=== PATIENT | female | born 1985 | race Caucasian/White ===

== ENCOUNTER 2017-07-22 18:35 | Emergency (ER) | payer BC ==
[2017-07-22] MEDS ORDERED: HYDROcodone/Acetaminophen 5/325 mg Tablet ONE (19:28)
--- NOTE | 2017-07-22 19:51 | RAD ---
THREE VIEWS LEFT ANKLE: Comparison: Left ankle pain after twisting on the balance beam at a trampoline park just prior to arr ival. FINDINGS: Three views left ankle shows moderate lateral soft tissue swelling. There appears to be a fracture of the tip of the lateral malleolus. This appears corticated and remote and was seen on the prior exami nation. No acute fracture is seen. IMPRESSION: Remote fracture of the lateral malleolus without acute osseous abnormality. POS: [facility]
--- NOTE | 2017-07-22 20:09 | RAD ---
TWO VIEWS LEFT TIBIA AND FIBULA: Comparison: None. History: Twisting ankle at a trampoline park just prior to arrival with left leg pain. FINDINGS: Two views of the left tibia and fibula shows no evidence of acute fracture or dislocation. There is a remote occipital fragment adjacent to the tip of the lateral malleolus. No focal soft tissue swellin g is seen. IMPRESSION: No evidence of acute osseous abnormality. POS: [facility]
== END 2017-07-22 20:29 | disposition home or self-care (01) ==
LOC: SCSER 18:35
DX: S93.402A Sprain of unspecified ligament of left ankle, initial encounter (principal); G43.909 Migraine, unspecified, not intractable, without status migrainosus; X50.1XXA Overexertion from prolonged static or awkward postures, initial encounter

== ENCOUNTER 2018-12-09 13:26 | Outpatient (CLI) | payer BC ==
[~2018-12-09 13:26] MED LIST: Gadobenate Dimeglumine 529 MG/1 ML (20ML VIAL) ONE
--- NOTE | 2018-12-09 14:35 | RAD ---
EXAM: XR Lumbar Spine Min 4 View PROVIDED CLINICAL HISTORY: Low back pain and leg pain. COMPARISON: None FINDINGS: There are 5 nonrib-bearing lumbar-type vertebral bodies. The vertebral body heights and intervertebra l disc spaces are within normal limits. No abnormal translational motion is seen between the flexion and extension views. IMPRESSION: Normal radiographs lumbar spine.
--- NOTE | 2018-12-09 15:01 | MRI ---
MRI LUMBAR SPINE WITH AND WITHOUT CONTRAST: DATE: 12/09/2018. HISTORY: A 33-year-old female with M54.5; low back pain, M79.606, leg pain; R20.2, paresthesia of foot. COMPARISON: 07/19/2016. TECHNIQUE: Multiple sequences obtained in axial and sagittal planes, pre and post IV injection of gadolinium-bas ed contrast agent: 12 mL MultiHance. FINDINGS: Conus medullaris terminates at L2. The syrinx tapers off and terminates at approximately T12-L1. Th ere is no abnormal intramedullary, extramedullary -intradural, extradural, intraosseous, or periverte bral abnormal enhancement or abnormal signal. Bone marrow signal and disk signal are normal. Disk s paces and vertebral body heights are maintained. Alignment is normal. No central stenosis, neural f oraminal stenosis, or nerve root impingement, at any level. No high-grade facet DJD. The cauda equi na is arranged in a symmetrical, normal distribution throughout the thecal sac. There has been no si gnificant interval change since 07/19/2016. IMPRESSION: 1. Syringohydromyelia. 2. Otherwise, normal lumbar spine. 3. No interval change since 07/19/2016. ARTUR Villagomez POS: [facility]
== END 2018-12-09 13:27 | disposition home or self-care (01) ==
LOC: TBSIIMAG 13:26
PROVIDERS: ATTEND Surgery
DX: M54.5 Low back pain (principal); M79.606 Pain in leg, unspecified; R20.2 Paresthesia of skin; G95.0 Syringomyelia and syringobulbia
CPT/HCPCS: 72110; 72158; A9577

== ENCOUNTER 2019-01-30 07:41 | Outpatient (CLI) | payer BC ==
--- NOTE | 2019-01-30 11:12 | MRI ---
Exam: Thoracic spine MRI with and without contrast COMPARISON: 07/19/2016 HISTORY: Syringohydromyelia. Pain in both shoulders, arms and numbness in bilateral hands. Worsening symptoms. TECHNIQUE: Thoracic spine MRI is performed with and without intravenous gadolinium administration. Mu lti sequential, multiplanar imaging was performed. FINDINGS: Appropriate T1 marrow signal intensity of the thoracic vertebra. Vertebral body height is maintained. No fracture. No STIR hyperintensity to suggest vertebral body edema or ligamentous injury. Postcontrast images do not demonstrate any abnormal enhancement with regards to the vertebral bodies. Visualized mediastinal structures, lung parenchyma and solid organs of appropriate signal intensity. Conus medullaris terminates at the mid L1 level. Redemonstration of a central T2 hyperintense focus o ccupying nearly the entirety of the thoracic cord. This T2 hyperintense focus is largest at the T8 level, which is similar to the previous examination. Central T2 hyperintense component measures 0.3 x 0.4 cm, at the T8 level. There is no cord expansion. Overall, there is a stable appearance of the cord. No abnormal enhancement. The neural foramina are patent throughout the thoracic spine. At T5-T6, there is a left paracentral disc protrusion with deformity of the left aspect of the cord, similar to the previous exam IMPRESSION: 1. Single hydromyelia occupying nearly the entirety of the thoracic cord. No significant change when compared to the previous examination. Note, the cervical hydromyelia is also appreciated in the cervical cord, which is not evaluated on the current exam. 2. Stable degenerative change at T5-T6. Transcribed Date/Time: 01/30/2019 11:43 AM
--- NOTE | 2019-01-30 13:26 | MRI ---
CERVICAL SPINE MRI WITH AND WITHOUT CONTRAST: HISTORY: Syringohydromyelia. Cervical pain with bilateral shoulder, arm and upper extremity numbness. COMPARISON: 07/19/2016 FINDINGS: Appropriate T1 marrow signal intensity of the cervical vertebra. Cervical spine vertebral body height is maintained. No fracture. No significant STIR hyperintensity to suggest vertebral body edema or ligamentous injury. Postcontrast images do not demonstrate any abnormal enhancement with regards to t he cervical vertebra. Visualized brain parenchyma, cervicomedullary junction and the upper cervical cord have a normal size and signal intensity. Redemonstration of a central T2 hyperintensity that starts at the C4-C5 level and involves the remainder of the cervical cord. The T2 hyperintense focus is largest at the C7 level, measuring 0.6 x 0.6 cm. Compared to the previous examination, there is no significant change. Previously, this T2 hyperintense area measured 0.5 x 0.6 cm. Postcontrast images do not demon strate any associated enhancement. Stable mild degenerative change at C5-C6. Throughout the cervical spine, no evidence of significant c entral canal stenosis or significant neural foraminal narrowing IMPRESSION: 1. No significant central canal stenosis throughout the cervical spine. 2. Redemonstration of a syringohydromyelia, unchanged. Transcribed Date/Time: 01/30/2019 1:47 PM
== END 2019-01-30 07:42 | disposition home or self-care (01) ==
LOC: BICMRI 07:41
PROVIDERS: ATTEND Surgery
DX: G95.0 Syringomyelia and syringobulbia (principal); M54.5 Low back pain; M79.603 Pain in arm, unspecified; M79.606 Pain in leg, unspecified; M47.814 Spondylosis without myelopathy or radiculopathy, thoracic region; Q06.4 Hydromyelia
CPT/HCPCS: 72156; 72157

== ENCOUNTER 2020-04-10 13:53 | Emergency (ER) | payer OTHER ==
[2020-04-10 14:31] LABS: Hemoglobin 16.1 g/dL (12.0-16.0); Mean Corpuscular HGB CONC 33.1 g/dL (32.0-36.0); Mean Corpuscular Hemoglobin 30.1 pg (27.0-31.0); Mean Corpuscular Volume 90.9 fL (78.0-98.0); Mean Platelet Volume 7.2 fL (7.4-10.4); Platelet Count 259 thou/uL (130-400); Red Blood Cell (RBC) Count 5.36 mill/uL (4.20-5.40); White Blood Cell (WBC) Count 3.5 thou/uL (4.8-10.8)
[2020-04-10] MEDS ORDERED: Acetaminophen 500 MG TAB ONE (14:35)
[2020-04-10 14:49] LABS: ALT (SGPT) 17 U/L (8-55); AST (SGOT) 18 U/L (5-34); Albumin 4.4 g/dL (3.5-5.0); Alkaline Phosphatase 54 U/L (40-110); Anion Gap 11 mmol/L (10-20); BUN (Urea Nitrogen) 7 mg/dL (7.0-18.7); Bilirubin, Total 0.5 mg/dL (0.2-1.2); Calc. Creatinine Clearance 0 mL/min (70-130); Carbon Dioxide 29 mmol/L (22-29); Chloride 105 mmol/L (98-107); Estimated GFR-MDRD 84; Globulin 2.9 g/dL (2.4-3.5); Glucose 91 mg/dL (70-105); Potassium 3.6 mmol/L (3.5-5.1); Protein, Total 7.3 g/dL (6.0-8.3); Sodium 141 mmol/L (136-145)
[2020-04-10 14:57] LABS: Band 2 % (5-11); Eosinophils 2 % (0-10); Lymphocytes 43 % (21-51); MDiff Complete? YES; Monocytes 10 % (0-10); Neutrophil 29 % (42-75); Platelet Morphology Comment Appears Adequate; Polychromasia SLIGHT = 2-3 cells (100X) (0-2/hpf); Reactive Lymphocytes 14 % (0-10)
--- NOTE | 2020-04-10 15:02 | RAD ---
EXAM: CHEST ONE VIEW HISTORY: Fever, weakness, dizziness. Low white blood cell count. COMPARISON: 10/04/2012. FINDINGS: Right-sided Mediport catheter has been removed. Cardiac silhouette and pulmonary vasculature are with in normal limits. The lungs are clear. The osseous structures are intact. IMPRESSION: No acute cardiopulmonary process.
[2020-04-10 15:14] LABS: Bilirubin Negative (Negative); Blood, Urine Negative (Negative); Clarity Turbid (Clear); Glucose, Urine (Dipstick) Normal (Negative); Ketone, Urine Negative (Negative); Leukocyte Negative Leu/uL (Negative); Nitrite Negative (Negative); Protein, Urine (Dipstick) 10 mg/dL (Neg-Trace); Specific Gravity, Urine 1.014 (1.002-1.036); pH, Urine 6.5 (5.0-9.0)
[2020-04-10 15:15] LABS: Pregnancy Test - Urine (BHCG) Negative (Negative)
[2020-04-10 15:16] LABS: Pregu Control Background? CLEAR/WHITE (CLR/WHITE); Pregu Control Bar Appear? YES (CONTROL BAR); Specific Gravity 1.014 (1.002-1.036)
[2020-04-11 11:38] LABS: SARS-CoV-2 MS2 Positive; SARS-CoV-2 N Gene Positive; SARS-CoV-2 S Gene Positive; SARS-CoV-2 by NAA DETECTED (NotDetected); SARS-CoV-2 orf1ab Positive
== END 2020-04-10 16:27 | disposition home or self-care (01) ==
LOC: ERS 13:53
DX: R53.81 Other malaise (principal); R53.83 Other fatigue; D72.819 Decreased white blood cell count, unspecified; F90.9 Attention-deficit hyperactivity disorder, unspecified type; Z79.899 Other long term (current) drug therapy; G20 Parkinson's disease; F32.9 Major depressive disorder, single episode, unspecified
CPT/HCPCS: 36415; 71045; 80053; 81003; 81025; 83605; 84443; 85025; 87635; 87804; 93005; U0003

== ENCOUNTER 2021-08-17 15:49 | Observation (INO) | payer MEDICARE, OTHER ==
[2021-08-17 16:56] LABS: #Lymphocytes 3.1 thou/uL (1.20-3.40); #Monocytes 0.7 thou/uL (0.11-0.59); #Neutrophils 6.3 thou/uL (1.40-6.50); %Basophils 0.5 % (0.0-1.0); %Eosinophils 0.1 % (0.0-10.0); %Lymphocytes 30.8 % (21.0-51.0); %Monocytes 6.4 % (0.0-10.0); %Neutrophils 62.1 % (42.0-75.0); Hemoglobin 14.9 g/dL (12.0-16.0); Mean Corpuscular HGB CONC 31.9 g/dL (32.0-36.0); Mean Corpuscular Hemoglobin 30.5 pg (27.0-31.0); Mean Corpuscular Volume 95.9 fL (78.0-98.0); Mean Platelet Volume 6.5 fL (7.4-10.4); Platelet Count 421 thou/uL (130-400); RBC Distribution Width 12.1 % (11.5-14.5); Red Blood Cell (RBC) Count 4.89 mill/uL (4.20-5.40); White Blood Cell (WBC) Count 10.1 thou/uL (4.8-10.8)
[2021-08-17 17:02] LABS: BHCG - Serum Negative (NEGATIVE); Pregs Control Background? CLEAR/WHITE (CLR/WHITE); Pregs Control Bar Appear? YES (CONTROL BAR)
[2021-08-17 17:10] LABS: ALT (SGPT) 12 U/L (8-55); AST (SGOT) 12 U/L (5-34); Albumin 4.6 g/dL (3.5-5.0); Alkaline Phosphatase 45 U/L (40-110); Anion Gap 16 mmol/L (10-20); BUN (Urea Nitrogen) 13 mg/dL (7.0-18.7); Bilirubin, Total 0.4 mg/dL (0.2-1.2); Calc. Creatinine Clearance 0 mL/min (70-130); Calcium 9.7 mg/dL (7.8-10.44); Carbon Dioxide 27 mmol/L (22-29); Chloride 102 mmol/L (98-107); Globulin 3.1 g/dL (2.4-3.5); Glucose 85 mg/dL (70-105); Lipase 73 U/L (8-78); Potassium 3.9 mmol/L (3.5-5.1); Protein, Total 7.7 g/dL (6.0-8.3); Sodium 141 mmol/L (136-145)
[2021-08-17 19:04] LABS: Clarity Clear (Clear); Specific Gravity, Urine 1.024 (1.002-1.036)
[2021-08-17 19:05] LABS: Bilirubin Negative (Negative); Blood, Urine Negative (Negative); Glucose, Urine (Dipstick) Normal (Negative); Ketone, Urine Negative (Negative); Leukocyte Negative Leu/uL (Negative); Nitrite Negative (Negative); Protein, Urine (Dipstick) Negative (Neg-Trace); Urobilinogen Normal mg/dL (Less than 2)
[2021-08-17 22:22] LABS: Troponin I Less than 0.010 ng/mL (< 0.028)
[2021-08-17] MEDS ORDERED: Ondansetron ODT 4 MG TAB SL PRN (23:00)
[2021-08-17] MEDS ORDERED: Acetaminophen 325 MG TAB PO PRN (23:00)
[2021-08-17] MEDS ORDERED: Ondansetron PF 4 MG/2 ML Vial IVP PRN (23:00)
[2021-08-17] MEDS ORDERED: Acetaminophen 650 MG Suppository PR PRN (23:11)
[2021-08-17 23:57] VITALS: BMI 26.3
[2021-08-18] MEDS: traMADol HCl 50 MG TAB PO PRN ×2 (00:11→13:44)
[2021-08-18 01:37] LABS: Troponin I Less than 0.010 ng/mL (< 0.028)
[2021-08-18 06:19] LABS: Hemoglobin 14.1 g/dL (12.0-16.0); Mean Corpuscular HGB CONC 32.6 g/dL (32.0-36.0); Mean Corpuscular Hemoglobin 31.3 pg (27.0-31.0); Mean Corpuscular Volume 95.9 fL (78.0-98.0); Platelet Count 338 thou/uL (130-400); RBC Distribution Width 12.3 % (11.5-14.5); Red Blood Cell (RBC) Count 4.53 mill/uL (4.20-5.40); White Blood Cell (WBC) Count 8.1 thou/uL (4.8-10.8)
[2021-08-18 06:22] LABS: Anion Gap 13 mmol/L (10-20); BUN (Urea Nitrogen) 15 mg/dL (7.0-18.7); Calc. Creatinine Clearance 125 mL/min (70-130); Calcium 8.9 mg/dL (7.8-10.44); Carbon Dioxide 24 mmol/L (22-29); Chloride 106 mmol/L (98-107); Glucose 70 mg/dL (70-105); Potassium 3.9 mmol/L (3.5-5.1); Sodium 139 mmol/L (136-145)
[2021-08-18 06:37] LABS: Lymphocytes 56 % (21-51); MDiff Complete? YES; Monocytes 9 % (0-10); Neutrophil 35 % (42-75)
[2021-08-18] MEDS ORDERED: Enoxaparin Sodium 40 MG/0.4 ML SYRINGE SC SCH (09:00)
[2021-08-18] MEDS ORDERED: Magnevist 469MG/ML 20 ML VIAL ONE (11:00)
[2021-08-18] MEDS ORDERED: Prochlorperazine Edisylate 10 MG in Sodium Chloride 0.9% 50 ML IVPB PRN (12:04)
[2021-08-18] MEDS ORDERED: diphenhydrAMINE 50 MG/ML VIAL IVP SCH (12:15)
[2021-08-18] MEDS ORDERED: Aspirin 325 MG TAB PO SCH (12:15)
[2021-08-18] MEDS ORDERED: Topiramate 25 MG TAB PO SCH ×2 (12:15→21:00)
[2021-08-18] MEDS: Ketorolac Tromethamine 30 MG/ML VIAL IVP SCH ×2 (13:45→18:11)
[2021-08-18 15:49] VITALS: BP 116/72; TEMP 97.7
== END 2021-08-18 18:30 | disposition home or self-care (01) ==
LOC: ERS 15:49 → NEURO 21:21
PROVIDERS: ADMIT Student in an Organized Health Care Education/Training Program; ATTEND Internal Medicine
DX: G43.909 Migraine, unspecified, not intractable, without status migrainosus (principal); G95.0 Syringomyelia and syringobulbia; H54.7 Unspecified visual loss; R07.89 Other chest pain; G62.9 Polyneuropathy, unspecified; G20 Parkinson's disease; R53.1 Weakness; Z85.71 Personal history of Hodgkin lymphoma; Z79.899 Other long term (current) drug therapy
CPT/HCPCS: 36415; 70450; 70553; 71045; 72141; 80048; 80053; 81003; 83690; 84484; 84703; 85025; 85379; 93005; 96372; 96374; 96375; A9579; G0378; J0780; J1650; J1885

== ENCOUNTER 2022-07-16 10:58 | Emergency (ER) | payer OTHER, MEDICARE ==
[2022-07-16 12:06] LABS: #Eosinphils 0.1 thou/uL (0.0-0.7); #Lymphocytes 1.9 thou/uL (1.20-3.40); #Monocytes 0.5 thou/uL (0.11-0.59); #Neutrophils 3.5 thou/uL (1.40-6.50); %Basophils 0.7 % (0.0-1.0); %Eosinophils 1.3 % (0.0-10.0); %Lymphocytes 32.2 % (21.0-51.0); %Monocytes 7.9 % (0.0-10.0); %Neutrophils 57.9 % (42.0-75.0); Hemoglobin 14.7 g/dL (12.0-16.0); Mean Corpuscular HGB CONC 32.5 g/dL (32.0-36.0); Mean Corpuscular Hemoglobin 29.4 pg (27.0-31.0); Mean Corpuscular Volume 90.4 fl (78.0-98.0); Platelet Count 373 10x3/uL (130-400); RBC Distribution Width 12.3 % (11.5-14.5); Red Blood Cell (RBC) Count 5.01 mill/uL (4.20-5.40)
[2022-07-16] MEDS ORDERED: Ketorolac Tromethamine 30 MG/ML VIAL ONE (12:07)
[2022-07-16 12:27] LABS: ALT (SGPT) 11 U/L (8-55); AST (SGOT) 15 U/L (5-34); Albumin 4.1 g/dL (3.5-5.0); Alkaline Phosphatase 50 U/L (40-110); Anion Gap 14 mmol/L (10-20); BUN (Urea Nitrogen) 7 mg/dL (7.0-18.7); Bilirubin, Total 0.6 mg/dL (0.2-1.2); Calc. Creatinine Clearance 0 mL/min (70-130); Calcium 9.2 mg/dL (7.8-10.44); Carbon Dioxide 24 mmol/L (22-29); Chloride 104 mmol/L (98-107); Estimated GFR 106; Glucose 88 mg/dL (70-105); Potassium 3.7 mmol/L (3.5-5.1); Protein, Total 7.1 g/dL (6.0-8.3); Sodium 138 mmol/L (136-145)
== END 2022-07-16 13:51 | disposition home or self-care (01) ==
LOC: ERS 10:58
DX: R07.89 Other chest pain (principal)
CPT/HCPCS: 36415; 71045; 80053; 84484; 85025; 85379; 93005; 96372; J1885

== ENCOUNTER 2022-10-12 11:07 | Outpatient (CLI) | payer OTHER | END 2022-10-12 11:08 | disposition home or self-care (01) | LOC: ULT 11:07 | PROVIDERS: ATTEND Family Medicine | DX: I73.9 Peripheral vascular disease, unspecified (principal) | CPT/HCPCS: 93923 ==

== ENCOUNTER 2022-11-22 11:55 | Emergency (ER) | payer OTHER ==
[2022-11-22 14:22] LABS: #Eosinphils 0.1 thou/uL (0.0-0.7); #Monocytes 0.4 thou/uL (0.11-0.59); #Neutrophils 3.8 thou/uL (1.40-6.50); %Basophils 0.7 % (0.0-1.0); %Lymphocytes 26.6 % (21.0-51.0); %Monocytes 7.2 % (0.0-10.0); %Neutrophils 63.3 % (42.0-75.0); Hemoglobin 12.1 g/dL (12.0-16.0); Mean Corpuscular HGB CONC 30.9 g/dL (32.0-36.0); Mean Corpuscular Volume 90.5 fl (78.0-98.0); Mean Platelet Volume 10.2 fL (7.4-10.4); Platelet Count 332 10x3/uL (130-400); RBC Distribution Width 13.2 % (11.5-14.5); Red Blood Cell (RBC) Count 4.32 mill/uL (4.20-5.40); White Blood Cell (WBC) Count 5.9 10x3/uL (4.8-10.8)
[2022-11-22 14:52] LABS: ALT (SGPT) 26 U/L (8-55); AST (SGOT) 23 U/L (5-34); Albumin 4.3 g/dL (3.5-5.0); Alkaline Phosphatase 53 U/L (40-110); Anion Gap 14 mmol/L (10-20); BUN (Urea Nitrogen) 9 mg/dL (7.0-18.7); Bilirubin, Total 0.2 mg/dL (0.2-1.2); Calc. Creatinine Clearance 0 mL/min (70-130); Calcium 9.3 mg/dL (7.8-10.44); Carbon Dioxide 23 mmol/L (22-29); Chloride 106 mmol/L (98-107); Estimated GFR 98; Globulin 2.8 g/dL (2.4-3.5); Glucose 91 mg/dL (70-105); Potassium 3.6 mmol/L (3.5-5.1); Protein, Total 7.1 g/dL (6.0-8.3); Sodium 139 mmol/L (136-145)
[2022-11-22 15:26] LABS: INR-International Normal Ratio 1.1; PTT 32.5 sec (22.9-36.1); Prothrombin Time 15.1 sec (12.0-14.7)
== END 2022-11-22 16:32 | disposition home or self-care (01) ==
LOC: ERS 11:55
DX: R04.0 Epistaxis (principal)
CPT/HCPCS: 36415; 80053; 85025; 85610; 85730; 93005

== ENCOUNTER 2023-02-25 15:35 | Emergency (ER) | payer OTHER ==
[~2023-02-25 15:35] MED LIST changes: -Gadobenate Dimeglumine 529 MG/1 ML (20ML VIAL) ONE; +Iopamidol-370 76% 500 ML MDV (1 ML CHARGE) ONE
[2023-02-25 16:12] LABS: #Monocytes 0.5 thou/uL (0.11-0.59); #Neutrophils 6.1 thou/uL (1.40-6.50); %Basophils 0.3 % (0.0-1.0); %Eosinophils 0.3 % (0.0-10.0); %Lymphocytes 23.3 % (21.0-51.0); %Monocytes 5.6 % (0.0-10.0); %Neutrophils 70.3 % (42.0-75.0); Hematocrit 38.3 % (36.0-47.0); Hemoglobin 11.6 g/dL (12.0-16.0); Mean Corpuscular HGB CONC 30.3 g/dL (32.0-36.0); Mean Corpuscular Volume 79.3 fl (78.0-98.0); Mean Platelet Volume 9.8 fL (7.4-10.4); Platelet Count 394 10x3/uL (130-400); RBC Distribution Width 15.4 % (11.5-14.5); Red Blood Cell (RBC) Count 4.83 mill/uL (4.20-5.40); White Blood Cell (WBC) Count 8.6 10x3/uL (4.8-10.8)
[2023-02-25 16:45] LABS: Troponin I Less than 0.010 ng/mL (< 0.028)
[2023-02-25 16:50] LABS: Albumin 4.5 g/dL (3.5-5.0)
[2023-02-25 16:51] LABS: Chloride 106 mmol/L (98-107); Sodium 137 mmol/L (136-145)
[2023-02-25 16:52] LABS: Calcium 9.2 mg/dL (7.8-10.44); Glucose 87 mg/dL (70-105)
[2023-02-25 16:53] LABS: Globulin 3.6 g/dL (2.4-3.5); Protein, Total 8.1 g/dL (6.0-8.3)
[2023-02-25 16:54] LABS: Anion Gap 14 mmol/L (10-20); Bilirubin, Total 0.4 mg/dL (0.2-1.2); Carbon Dioxide 22 mmol/L (22-29)
[2023-02-25 16:55] LABS: Alkaline Phosphatase 46 U/L (40-110)
[2023-02-25 16:56] LABS: Calc. Creatinine Clearance 0 mL/min (70-130); Estimated GFR 91
[2023-02-25 16:57] LABS: BUN (Urea Nitrogen) 9 mg/dL (7.0-18.7)
[2023-02-25 16:58] LABS: ALT (SGPT) 18 U/L (8-55); AST (SGOT) 48 U/L (5-34); Lipase 61 U/L (8-78)
[2023-02-25 17:33] LABS: Bacteria/HPF None Seen HPF (None Seen); Bilirubin Negative (Negative); Blood, Urine Negative (Negative); CAUTI Indications for Culture Alt mental st,lethar; Clarity Clear (Clear); Glucose, Urine (Dipstick) Greater than 1000 mg/dL (Negative); Ketone, Urine Negative (Negative); Leukocyte Negative Leu/uL (Negative); Nitrite Negative (Negative); Protein, Urine (Dipstick) Negative (Neg-Trace); RBC/HPF 0-3 HPF (0-3); Specific Gravity, Urine 1.009 (1.002-1.036); Squamous Epithelial 0-3 HPF (0-3); Urobilinogen Normal mg/dL (Less than 2); WBC/HPF 0-3 HPF (0-3); pH, Urine 6.5 (5.0-9.0)
[2023-02-25 17:34] LABS: Urine Culture Reflex No No
[2023-02-25] MEDS ORDERED: Morphine 4 MG/ML VIAL ONE (18:05)
[2023-02-25] MEDS ORDERED: diphenhydrAMINE 50 MG/ML VIAL ONE (18:17)
[2023-02-25] MEDS ORDERED: Ondansetron PF 4 MG/2 ML Vial ONE (18:17)
[2023-02-25] MEDS ORDERED: LORazepam 2 MG/ML SYR.(CARPUJECT) ONE ×2 (18:28→18:31)
[2023-02-25 21:12] LABS: Troponin I 0.012 ng/mL (< 0.028)
[2023-02-25] MEDS ORDERED: Acetaminophen 500 MG TAB ONE (21:43)
== END 2023-02-25 21:41 | disposition home or self-care (01) ==
LOC: ERS 15:35
DX: R07.9 Chest pain, unspecified (principal); R11.0 Nausea
CPT/HCPCS: 71045; 71275; 80053; 81001; 83690; 84484 ×2; 85025; 93005; 94760; 96374; 96375; 99285; J2060; 36415; J1200; J2270; J2405; Q9967

== ENCOUNTER 2023-02-26 05:30 | Inpatient (IN) | payer OTHER ==
[2023-02-26] MEDS ORDERED: Mag-Al 1200 mg/1200 mg/30 ML UDCUP ONE (05:55)
[2023-02-26 06:05] LABS: #Monocytes 0.8 thou/uL (0.11-0.59); #Neutrophils 4.4 thou/uL (1.40-6.50); %Basophils 0.5 % (0.0-1.0); %Eosinophils 0.2 % (0.0-10.0); %Lymphocytes 35.6 % (21.0-51.0); %Monocytes 9.7 % (0.0-10.0); %Neutrophils 53.8 % (42.0-75.0); Hematocrit 36.6 % (36.0-47.0); Hemoglobin 11.8 g/dL (12.0-16.0); Mean Corpuscular HGB CONC 32.2 g/dL (32.0-36.0); Mean Corpuscular Hemoglobin 24.3 pg (27.0-31.0); Mean Platelet Volume 9.9 fL (7.4-10.4); Platelet Count 404 10x3/uL (130-400); RBC Distribution Width 15.1 % (11.5-14.5); Red Blood Cell (RBC) Count 4.85 mill/uL (4.20-5.40); White Blood Cell (WBC) Count 8.2 10x3/uL (4.8-10.8)
[2023-02-26 06:32] LABS: ALT (SGPT) 16 U/L (8-55); AST (SGOT) 18 U/L (5-34); Albumin 4.7 g/dL (3.5-5.0); Alkaline Phosphatase 49 U/L (40-110); Anion Gap 16 mmol/L (10-20); BUN (Urea Nitrogen) 11 mg/dL (7.0-18.7); Bilirubin, Total 0.6 mg/dL (0.2-1.2); Calc. Creatinine Clearance 0 mL/min (70-130); Calcium 10.1 mg/dL (7.8-10.44); Carbon Dioxide 21 mmol/L (22-29); Chloride 104 mmol/L (98-107); Estimated GFR 84; Globulin 2.7 g/dL (2.4-3.5); Glucose 72 mg/dL (70-105); Lipase 47 U/L (8-78); Potassium 3.5 mmol/L (3.5-5.1); Protein, Total 7.4 g/dL (6.0-8.3); Sodium 137 mmol/L (136-145)
[2023-02-26 06:36] LABS: Troponin I Less than 0.010 ng/mL (< 0.028)
[2023-02-26 06:36] LABS: Bacteria/HPF None Seen HPF (None Seen); Bilirubin Negative (Negative); Blood, Urine 3+ (Negative); CAUTI Indications for Culture Alt mental st,lethar; Clarity Turbid (Clear); Glucose, Urine (Dipstick) Greater than 1000 mg/dL (Negative); Ketone, Urine 20 mg/dL (Negative); Leukocyte 25 Leu/uL (Negative); Nitrite Negative (Negative); Protein, Urine (Dipstick) 50 mg/dL (Neg-Trace); RBC/HPF Greater than 50 HPF (0-3); Squamous Epithelial 0-3 HPF (0-3); Urobilinogen Normal mg/dL (Less than 2); pH, Urine 5.5 (5.0-9.0)
[2023-02-26] MEDS ORDERED: Morphine 2 MG/ML VIAL ONE (06:40)
[2023-02-26] MEDS ORDERED: Ondansetron PF 4 MG/2 ML Vial ONE (06:40)
[2023-02-26 06:43] LABS: Mean Corpuscular Volume 75.5 fl (78.0-98.0)
[2023-02-26 07:04] LABS: Urine Culture Reflex No No
[2023-02-26] MEDS ORDERED: Calcium Carbonate 500 MG ChewTAB PO PRN (08:10)
[2023-02-26] MEDS ORDERED: Senokot S 8.6-50 MG TAB PO PRN (08:10)
[2023-02-26 09:26] LABS: Troponin I Less than 0.010 ng/mL (< 0.028)
[2023-02-26] MEDS: Rosuvastatin 20 MG TAB PO SCH (09:56)
[2023-02-26] MEDS: Acetaminophen 325 MG TAB PO PRN ×2 (09:56→15:13)
[2023-02-26] MEDS: PARoxetine 20 MG TAB PO SCH (09:56)
[2023-02-26] MEDS: Aspirin Chewable 81 MG TAB PO SCH (09:56)
[2023-02-26] MEDS: Clopidogrel Bisulfate 75 MG TAB PO SCH (09:56)
[2023-02-26] MEDS: Furosemide 20 MG TAB PO SCH (09:56)
[2023-02-26 10:58] VITALS: BMI 29.8
[2023-02-26] MEDS ORDERED: Nitroglycerin 2% Ointment 1 INCH/1 GM Packet TOP SCH (14:00)
[2023-02-26] MEDS: Ondansetron PF 4 MG/2 ML Vial IVP PRN (15:12)
[2023-02-26] MEDS ORDERED: Morphine 4 MG/ML VIAL SLOW IVP SCH (16:45)
[2023-02-26] MEDS ORDERED: Morphine 2 MG/ML VIAL SLOW IVP PRN (18:00)
[2023-02-26] MEDS: Lisinopril 5 MG TAB PO SCH (23:06)
[2023-02-27] MEDS: Acetaminophen 325 MG TAB PO PRN ×2 (04:48→12:15)
[2023-02-27 06:01] LABS: #Eosinphils 0.1 thou/uL (0.0-0.7); #Monocytes 0.8 thou/uL (0.11-0.59); #Neutrophils 3.2 thou/uL (1.40-6.50); %Basophils 0.5 % (0.0-1.0); %Eosinophils 1.6 % (0.0-10.0); %Lymphocytes 35.1 % (21.0-51.0); %Monocytes 11.9 % (0.0-10.0); %Neutrophils 50.7 % (42.0-75.0); Hematocrit 34.3 % (36.0-47.0); Hemoglobin 10.3 g/dL (12.0-16.0); Mean Platelet Volume 9.6 fL (7.4-10.4); Platelet Count 325 10x3/uL (130-400); RBC Distribution Width 15.4 % (11.5-14.5); White Blood Cell (WBC) Count 6.3 10x3/uL (4.8-10.8)
[2023-02-27 06:07] LABS: Hemoglobin A1c 5.8 % (4.0-6.0)
[2023-02-27 06:10] LABS: Mean Corpuscular Volume 79.8 fl (78.0-98.0)
[2023-02-27 06:22] LABS: ALT (SGPT) 15 U/L (8-55); AST (SGOT) 18 U/L (5-34); Alkaline Phosphatase 41 U/L (40-110); Anion Gap 10 mmol/L (10-20); BUN (Urea Nitrogen) 10 mg/dL (7.0-18.7); Bilirubin, Total 0.4 mg/dL (0.2-1.2); Calc. Creatinine Clearance 115 mL/min (70-130); Calcium 8.9 mg/dL (7.8-10.44); Carbon Dioxide 26 mmol/L (22-29); Cardiac Risk 2.6 (Less than 4.5); Chloride 105 mmol/L (98-107); Cholesterol 120 mg/dl (< 200 Desired); Estimated GFR 92; Globulin 2.4 g/dL (2.4-3.5); Glucose 88 mg/dL (70-105); HDL Cholesterol 47 mg/dL (>60 Neg Risk); LDL Cholesterol, Calculated 60 mg/dL; Magnesium 2.2 mg/dL (1.6-2.6); Potassium 3.6 mmol/L (3.5-5.1); Protein, Total 6.4 g/dL (6.0-8.3); Sodium 137 mmol/L (136-145); Triglycerides 65 mg/dL (Less than 150)
[2023-02-27] MEDS: Furosemide 20 MG TAB PO SCH (08:56)
[2023-02-27] MEDS: Rosuvastatin 20 MG TAB PO SCH (08:56)
[2023-02-27] MEDS: Aspirin Chewable 81 MG TAB PO SCH (08:56)
[2023-02-27] MEDS: PARoxetine 20 MG TAB PO SCH (08:56)
[2023-02-27] MEDS: Clopidogrel Bisulfate 75 MG TAB PO SCH (08:56)
[2023-02-27] MEDS: Empagliflozin 10 MG TAB PO SCH (08:56)
[2023-02-27] MEDS: Ondansetron PF 4 MG/2 ML Vial IVP PRN (12:19)
[2023-02-27] MEDS: Lisinopril 5 MG TAB PO SCH (20:24)
[2023-02-28 04:28] LABS: #Eosinphils 0.1 thou/uL (0.0-0.7); #Monocytes 0.7 thou/uL (0.11-0.59); %Basophils 0.3 % (0.0-1.0); %Eosinophils 1.3 % (0.0-10.0); %Lymphocytes 38.4 % (21.0-51.0); %Monocytes 10.7 % (0.0-10.0); Hematocrit 35.1 % (36.0-47.0); Hemoglobin 10.5 g/dL (12.0-16.0); Mean Corpuscular HGB CONC 29.9 g/dL (32.0-36.0); Mean Corpuscular Hemoglobin 23.9 pg (27.0-31.0); Mean Platelet Volume 9.8 fL (7.4-10.4); Platelet Count 341 10x3/uL (130-400); RBC Distribution Width 15.3 % (11.5-14.5); Red Blood Cell (RBC) Count 4.39 mill/uL (4.20-5.40); White Blood Cell (WBC) Count 6.1 10x3/uL (4.8-10.8)
[2023-02-28 04:54] LABS: Anion Gap 10 mmol/L (10-20); BUN (Urea Nitrogen) 10 mg/dL (7.0-18.7); Calc. Creatinine Clearance 118 mL/min (70-130); Carbon Dioxide 27 mmol/L (22-29); Chloride 107 mmol/L (98-107); Estimated GFR 95; Glucose 81 mg/dL (70-105); Potassium 3.9 mmol/L (3.5-5.1); Sodium 140 mmol/L (136-145)
[2023-02-28] MEDS ORDERED: Midazolam HCl 2 mg/2 ml Vial ONE (09:34)
[2023-02-28] MEDS ORDERED: PROPOFOL 200 MG/20 ML VIAL ONE (09:52)
[2023-02-28] MEDS: Empagliflozin 10 MG TAB PO SCH (11:15)
[2023-02-28] MEDS: Furosemide 20 MG TAB PO SCH (11:15)
[2023-02-28] MEDS: PARoxetine 20 MG TAB PO SCH (11:15)
[2023-02-28] MEDS: Rosuvastatin 20 MG TAB PO SCH (11:16)
[2023-02-28] MEDS: Aspirin Chewable 81 MG TAB PO SCH (11:16)
[2023-02-28] MEDS: Clopidogrel Bisulfate 75 MG TAB PO SCH (11:17)
[2023-02-28] MEDS: Lisinopril 5 MG TAB PO SCH (19:54)
[2023-02-28] MEDS ORDERED: Melatonin 3 MG TAB PO PRN (20:04)
[2023-03-01 05:16] LABS: #Eosinphils 0.1 thou/uL (0.0-0.7); #Monocytes 0.6 thou/uL (0.11-0.59); #Neutrophils 4.1 thou/uL (1.40-6.50); %Basophils 0.6 % (0.0-1.0); %Eosinophils 1.7 % (0.0-10.0); %Lymphocytes 25.2 % (21.0-51.0); %Monocytes 8.8 % (0.0-10.0); %Neutrophils 63.5 % (42.0-75.0); Hematocrit 35.7 % (36.0-47.0); Mean Corpuscular HGB CONC 30.8 g/dL (32.0-36.0); Mean Corpuscular Hemoglobin 24.3 pg (27.0-31.0); Mean Corpuscular Volume 78.8 fl (78.0-98.0); Mean Platelet Volume 10.2 fL (7.4-10.4); Platelet Count 339 10x3/uL (130-400); RBC Distribution Width 15.7 % (11.5-14.5); Red Blood Cell (RBC) Count 4.53 mill/uL (4.20-5.40); White Blood Cell (WBC) Count 6.5 10x3/uL (4.8-10.8)
[2023-03-01 05:54] LABS: Anion Gap 11 mmol/L (10-20); BUN (Urea Nitrogen) 10 mg/dL (7.0-18.7); Calc. Creatinine Clearance 114 mL/min (70-130); Calcium 9.2 mg/dL (7.8-10.44); Carbon Dioxide 25 mmol/L (22-29); Chloride 106 mmol/L (98-107); Estimated GFR 91; Glucose 89 mg/dL (70-105); Potassium 3.6 mmol/L (3.5-5.1); Sodium 138 mmol/L (136-145)
[2023-03-01] MEDS: Empagliflozin 10 MG TAB PO SCH (08:07)
[2023-03-01] MEDS: Furosemide 20 MG TAB PO SCH (08:07)
[2023-03-01] MEDS: Rosuvastatin 20 MG TAB PO SCH (08:07)
[2023-03-01] MEDS: PARoxetine 20 MG TAB PO SCH (08:07)
[2023-03-01] MEDS: Aspirin Chewable 81 MG TAB PO SCH (08:07)
[2023-03-01] MEDS: Clopidogrel Bisulfate 75 MG TAB PO SCH (08:07)
[2023-03-01] MEDS ORDERED: Promethazine HCl 12.5 MG in Sodium Chloride 0.9% 50 ML IVPB PRN (12:44)
[2023-03-01 15:36] VITALS: BP 90/55; TEMP 98.8
== END 2023-03-01 16:50 | disposition home or self-care (01) | DRG 392 ==
LOC: SUATTDRO 05:30 → ERS 05:30 → 2NO 08:18 → OBSVTOIN 02-27 15:20
PROVIDERS: ADMIT Internal Medicine; ATTEND Emergency Medicine
PROC: 0DB68ZX Excision of Stomach, Via Natural or Artificial Opening Endoscopic, Diagnostic (ICD-10-PCS; principal; 2023-02-28)
PROC: 0D758ZZ Dilation of Esophagus, Via Natural or Artificial Opening Endoscopic (ICD-10-PCS; 2023-02-28)
DX: R13.12 Dysphagia, oropharyngeal phase (principal); R07.89 Other chest pain; G43.909 Migraine, unspecified, not intractable, without status migrainosus; G62.9 Polyneuropathy, unspecified; I25.10 Atherosclerotic heart disease of native coronary artery without angina pectoris; E78.00 Pure hypercholesterolemia, unspecified; I73.9 Peripheral vascular disease, unspecified; M19.90 Unspecified osteoarthritis, unspecified site; F90.9 Attention-deficit hyperactivity disorder, unspecified type; F32.A Depression, unspecified; K29.70 Gastritis, unspecified, without bleeding; R11.2 Nausea with vomiting, unspecified; Z79.82 Long term (current) use of aspirin; Z79.899 Other long term (current) drug therapy; Z95.5 Presence of coronary angioplasty implant and graft; I25.2 Old myocardial infarction; Z86.73 Personal history of transient ischemic attack (TIA), and cerebral infarction without residual deficits; Z90.710 Acquired absence of both cervix and uterus
CPT/HCPCS: 36415; 71045; 71275; 74230; 76705; 80048; 80053; 80061; 81001; 83036; 83690; 83735; 84484; 85025; 88305; 88342; 93005; 94760; 96372; 96374; 96375; 96376; G0378; J1200; J1650; J2060; J2250; J2270; J2272; J2405; J2550; J2704; Q9967

== ENCOUNTER 2023-03-05 21:02 | Inpatient (IN) | payer OTHER ==
[2023-03-05 22:14] LABS: #Monocytes 0.9 thou/uL (0.11-0.59); #Neutrophils 16.1 thou/uL (1.40-6.50); %Basophils 0.1 % (0.0-1.0); %Lymphocytes 5.6 % (21.0-51.0); %Neutrophils 88.9 % (42.0-75.0); Hematocrit 35.3 % (36.0-47.0); Hemoglobin 10.9 g/dL (12.0-16.0); Mean Corpuscular HGB CONC 30.9 g/dL (32.0-36.0); Mean Corpuscular Hemoglobin 24.4 pg (27.0-31.0); Mean Platelet Volume 10.2 fL (7.4-10.4); Platelet Count 368 10x3/uL (130-400); RBC Distribution Width 15.9 % (11.5-14.5); Red Blood Cell (RBC) Count 4.47 mill/uL (4.20-5.40); White Blood Cell (WBC) Count 18.1 10x3/uL (4.8-10.8)
[2023-03-05 22:36] LABS: ALT (SGPT) 14 U/L (8-55); AST (SGOT) 20 U/L (5-34); Albumin 4.2 g/dL (3.5-5.0); Alkaline Phosphatase 44 U/L (40-110); Anion Gap 16 mmol/L (10-20); BUN (Urea Nitrogen) 10 mg/dL (7.0-18.7); Bilirubin, Total 0.3 mg/dL (0.2-1.2); Calc. Creatinine Clearance 0 mL/min (70-130); Calcium 8.8 mg/dL (7.8-10.44); Carbon Dioxide 18 mmol/L (22-29); Chloride 105 mmol/L (98-107); Estimated GFR 90; Globulin 2.7 g/dL (2.4-3.5); Glucose 90 mg/dL (70-105); Potassium 3.8 mmol/L (3.5-5.1); Protein, Total 6.9 g/dL (6.0-8.3); Sodium 135 mmol/L (136-145)
[2023-03-05 22:41] LABS: Troponin I Less than 0.010 ng/mL (< 0.028)
[2023-03-05] MEDS ORDERED: Vancomycin 1.5 GRAM/300 ML BAG 1.5 GM in Premix Bag 1 BAG IVPB SCH (23:15)
[2023-03-05] MEDS ORDERED: Metoclopramide HCl 10 MG/2 ML VIAL ONE (23:58)
[2023-03-05] MEDS ORDERED: diphenhydrAMINE 50 MG/ML VIAL ONE (23:58)
[2023-03-06 00:26] LABS: Bacteria/HPF None Seen HPF (None Seen); Bilirubin Negative (Negative); Blood, Urine Negative (Negative); CAUTI Indications for Culture Fever or rigors; Clarity Clear (Clear); Glucose, Urine (Dipstick) Greater than 1000 mg/dL (Negative); Ketone, Urine Negative (Negative); Leukocyte Negative Leu/uL (Negative); Nitrite Negative (Negative); Protein, Urine (Dipstick) Negative (Neg-Trace); RBC/HPF 0-3 HPF (0-3); Specific Gravity, Urine 1.025 (1.002-1.036); Urobilinogen Normal mg/dL (Less than 2); WBC/HPF 0-3 HPF (0-3)
[2023-03-06 00:28] LABS: Urine Culture Reflex No No
[2023-03-06] MEDS ORDERED: Cefepime 2 GM VIAL ONE (01:23)
[2023-03-06] MEDS ORDERED: Ondansetron PF 4 MG/2 ML Vial IVP PRN (01:57)
[2023-03-06] MEDS ORDERED: Promethazine HCl 12.5 MG in Sodium Chloride 0.9% 50 ML IVPB PRN (01:58)
[2023-03-06] MEDS ORDERED: Potassium Chloride 20 MEQ in Premix Bag 1 BAG IVPB SCH (02:15)
[2023-03-06] MEDS: Lactated Ringer's 1,000 ML IV SCH ×2 (02:45→16:42)
[2023-03-06] MEDS ORDERED: Piperacillin/Tazobactam 3.375 GM in Sodium Chloride 0.9% 100 ML IVPB SCH (03:00)
[2023-03-06 03:13] LABS: #Monocytes 0.9 thou/uL (0.11-0.59); #Neutrophils 9.6 thou/uL (1.40-6.50); %Basophils 0.2 % (0.0-1.0); %Eosinophils 0.2 % (0.0-10.0); %Lymphocytes 15.1 % (21.0-51.0); %Monocytes 6.8 % (0.0-10.0); %Neutrophils 77.4 % (42.0-75.0); Hematocrit 31.5 % (36.0-47.0); Hemoglobin 9.4 g/dL (12.0-16.0); Mean Corpuscular HGB CONC 29.8 g/dL (32.0-36.0); Mean Corpuscular Hemoglobin 24.1 pg (27.0-31.0); Mean Corpuscular Volume 80.8 fl (78.0-98.0); Mean Platelet Volume 10.7 fL (7.4-10.4); Platelet Count 330 10x3/uL (130-400); White Blood Cell (WBC) Count 12.4 10x3/uL (4.8-10.8)
[2023-03-06 03:23] LABS: Pregnancy Test - Urine (BHCG) Negative (Negative)
[2023-03-06 03:24] LABS: Pregu Control Background? CLEAR/WHITE (CLR/WHITE); Pregu Control Bar Appear? YES (CONTROL BAR); Specific Gravity 1.025 (1.002-1.036)
[2023-03-06] MEDS ORDERED: Potassium Chloride 20 MEQ/100 ML PREMIX BAG ONE (03:24)
[2023-03-06] MEDS ORDERED: Piperacillin/Tazobactam 4.5 GM VIAL ONE (04:10)
[2023-03-06 04:11] LABS: ALT (SGPT) 12 U/L (8-55); AST (SGOT) 20 U/L (5-34); Albumin 3.6 g/dL (3.5-5.0); Alkaline Phosphatase 39 U/L (40-110); Anion Gap 15 mmol/L (10-20); BUN (Urea Nitrogen) 9 mg/dL (7.0-18.7); Bilirubin, Total 0.3 mg/dL (0.2-1.2); Calc. Creatinine Clearance 123 mL/min (70-130); Calcium 8.2 mg/dL (7.8-10.44); Carbon Dioxide 16 mmol/L (22-29); Chloride 109 mmol/L (98-107); Estimated GFR 99; Globulin 2.4 g/dL (2.4-3.5); Glucose 75 mg/dL (70-105); Potassium 4.1 mmol/L (3.5-5.1); Sodium 136 mmol/L (136-145)
[2023-03-06] MEDS ORDERED: Piperacillin/Tazobactam 3.375 GM VIAL ONE ×2 (04:16→08:23)
[2023-03-06] MEDS ORDERED: Piperacillin/Tazobactam 4.5 GM in Sodium Chloride 0.9% 100 ML IVPB SCH (06:00)
[2023-03-06 08:00] LABS: Troponin I Less than 0.010 ng/mL (< 0.028)
[2023-03-06] MEDS ORDERED: Famotidine 20 MG TAB ONE (08:23)
[2023-03-06] MEDS ORDERED: Aspirin Chewable 81 MG TAB ONE (08:23)
[2023-03-06] MEDS ORDERED: Clopidogrel Bisulfate 75 MG TAB ONE (08:23)
[2023-03-06] MEDS: Piperacillin/Tazobactam 3.375 GM in Sodium Chloride 0.9% 100 ML IVPB SCH ×3 (08:35→23:07)
[2023-03-06] MEDS: Famotidine 20 MG TAB PO SCH ×2 (08:35→20:04)
[2023-03-06] MEDS: Aspirin Chewable 81 MG TAB PO SCH (08:35)
[2023-03-06] MEDS: Clopidogrel Bisulfate 75 MG TAB PO SCH (08:35)
[2023-03-06] MEDS ORDERED: Iopamidol-370 76% 500 ML MDV (1 ML CHARGE) ONE (10:21)
[2023-03-06] MEDS: PARoxetine 20 MG TAB PO SCH (11:35)
[2023-03-06] MEDS: Empagliflozin 10 MG TAB PO SCH ×3 (11:35→20:06)
[2023-03-06] MEDS: Rosuvastatin 20 MG TAB PO SCH (11:35)
[2023-03-06 14:26] LABS: Troponin I Less than 0.010 ng/mL (< 0.028)
[2023-03-06] MEDS ORDERED: Docusate 100 MG CAP PO PRN (15:01)
[2023-03-06 22:28] LABS: Troponin I Less than 0.010 ng/mL (< 0.028)
[2023-03-07] MEDS: Lactated Ringer's 1,000 ML IV SCH ×3 (03:15→21:14)
[2023-03-07 08:17] LABS: #Eosinphils 0.3 thou/uL (0.0-0.7); #Monocytes 0.4 thou/uL (0.11-0.59); #Neutrophils 1.6 thou/uL (1.40-6.50); %Basophils 0.7 % (0.0-1.0); %Lymphocytes 45.8 % (21.0-51.0); %Monocytes 9.8 % (0.0-10.0); %Neutrophils 37.5 % (42.0-75.0); Hematocrit 34.5 % (36.0-47.0); Hemoglobin 10.3 g/dL (12.0-16.0); Mean Corpuscular HGB CONC 29.9 g/dL (32.0-36.0); Mean Corpuscular Volume 80.2 fl (78.0-98.0); Platelet Count 304 10x3/uL (130-400); RBC Distribution Width 16.1 % (11.5-14.5); White Blood Cell (WBC) Count 4.3 10x3/uL (4.8-10.8)
[2023-03-07] MEDS: Piperacillin/Tazobactam 3.375 GM in Sodium Chloride 0.9% 100 ML IVPB SCH ×2 (08:17→15:20)
[2023-03-07] MEDS: Clopidogrel Bisulfate 75 MG TAB PO SCH (08:20)
[2023-03-07] MEDS: PARoxetine 20 MG TAB PO SCH (08:20)
[2023-03-07] MEDS: Famotidine 20 MG TAB PO SCH ×2 (08:20→21:10)
[2023-03-07] MEDS: Empagliflozin 10 MG TAB PO SCH ×2 (08:20→21:10)
[2023-03-07] MEDS: Aspirin Chewable 81 MG TAB PO SCH (08:20)
[2023-03-07] MEDS: Rosuvastatin 20 MG TAB PO SCH (08:20)
[2023-03-07 08:43] LABS: ALT (SGPT) 11 U/L (8-55); AST (SGOT) 15 U/L (5-34); Albumin 3.6 g/dL (3.5-5.0); Alkaline Phosphatase 39 U/L (40-110); Anion Gap 10 mmol/L (10-20); BUN (Urea Nitrogen) 8 mg/dL (7.0-18.7); Bilirubin, Total 0.3 mg/dL (0.2-1.2); Calc. Creatinine Clearance 116 mL/min (70-130); Calcium 8.6 mg/dL (7.8-10.44); Carbon Dioxide 24 mmol/L (22-29); Chloride 109 mmol/L (98-107); Estimated GFR 92; Globulin 2.2 g/dL (2.4-3.5); Glucose 79 mg/dL (70-105); Magnesium 2.1 mg/dL (1.6-2.6); Potassium 3.8 mmol/L (3.5-5.1); Protein, Total 5.8 g/dL (6.0-8.3); Sodium 139 mmol/L (136-145)
[2023-03-07 11:49] VITALS: BMI 29.8
[2023-03-07] MEDS ORDERED: Lisinopril 5 MG TAB PO SCH (21:00)
[2023-03-07] MEDS ORDERED: Acetaminophen 325 MG TAB PO PRN (21:45)
[2023-03-08] MEDS: Lactated Ringer's 1,000 ML IV SCH (06:02)
[2023-03-08] MEDS: Aspirin Chewable 81 MG TAB PO SCH (08:09)
[2023-03-08] MEDS: Rosuvastatin 20 MG TAB PO SCH (08:09)
[2023-03-08] MEDS: Clopidogrel Bisulfate 75 MG TAB PO SCH (08:09)
[2023-03-08] MEDS: Empagliflozin 10 MG TAB PO SCH (08:10)
[2023-03-08] MEDS: Famotidine 20 MG TAB PO SCH (08:10)
[2023-03-08] MEDS: PARoxetine 20 MG TAB PO SCH (08:10)
[2023-03-08 08:38] VITALS: BP 90/57; TEMP 98
== END 2023-03-08 13:45 | disposition home or self-care (01) | DRG 315 ==
LOC: ERS 21:02 → ERHOLD 03-06 01:35 → T4-A 03-06 11:05 → OBSVTOIN 03-07 17:33
PROVIDERS: ADMIT Internal Medicine Nephrology; ATTEND Hospitalist
DX: I95.9 Hypotension, unspecified (principal); I50.22 Chronic systolic (congestive) heart failure; E87.6 Hypokalemia; I25.10 Atherosclerotic heart disease of native coronary artery without angina pectoris; D64.9 Anemia, unspecified; D72.829 Elevated white blood cell count, unspecified; I25.2 Old myocardial infarction; F32.A Depression, unspecified; F90.9 Attention-deficit hyperactivity disorder, unspecified type; N83.201 Unspecified ovarian cyst, right side; Z79.82 Long term (current) use of aspirin; Z88.8 Allergy status to other drugs, medicaments and biological substances; Z90.710 Acquired absence of both cervix and uterus; Z85.72 Personal history of non-Hodgkin lymphomas
CPT/HCPCS: 36415; 71045; 74177; 76856; 80053; 81001; 81025; 83605; 83690; 83735; 83880; 84484; 85025; 87040; 87086; 87149; 87186; 93005; J0692; J1200; J2405; J2543; J2765; J3370; J3480; J3490; J7120; Q9967

== ENCOUNTER 2023-03-23 17:52 | Emergency (ER) | payer OTHER ==
[2023-03-23] MEDS ORDERED: diphenhydrAMINE 50 MG/ML VIAL ONE (18:07)
[2023-03-23] MEDS ORDERED: Famotidine/PF 20 mg/2ml Vial ONE (18:07)
[2023-03-23] MEDS ORDERED: methylPREDNISolone Sod Succ/PF 125 MG/2 ML VIAL ONE (18:07)
[2023-03-23] MEDS ORDERED: Ketorolac Tromethamine 30 MG/ML VIAL ONE (18:29)
[2023-03-23 18:39] LABS: #Monocytes 0.3 thou/uL (0.11-0.59); #Neutrophils 4.3 thou/uL (1.40-6.50); %Basophils 0.5 % (0.0-1.0); %Eosinophils 0.5 % (0.0-10.0); %Lymphocytes 28.5 % (21.0-51.0); %Monocytes 5.1 % (0.0-10.0); %Neutrophils 65.1 % (42.0-75.0); Hematocrit 37.3 % (36.0-47.0); Hemoglobin 11.4 g/dL (12.0-16.0); Mean Corpuscular HGB CONC 30.6 g/dL (32.0-36.0); Mean Corpuscular Hemoglobin 23.8 pg (27.0-31.0); Mean Platelet Volume 10.4 fL (7.4-10.4); Platelet Count 376 10x3/uL (130-400); RBC Distribution Width 16.8 % (11.5-14.5); Red Blood Cell (RBC) Count 4.78 mill/uL (4.20-5.40); White Blood Cell (WBC) Count 6.6 10x3/uL (4.8-10.8)
[2023-03-23 19:03] LABS: ALT (SGPT) 15 U/L (8-55); AST (SGOT) 21 U/L (5-34); Albumin 4.5 g/dL (3.5-5.0); Alkaline Phosphatase 54 U/L (40-110); Anion Gap 16 mmol/L (10-20); BUN (Urea Nitrogen) 11 mg/dL (7.0-18.7); Bilirubin, Total 0.6 mg/dL (0.2-1.2); Calc. Creatinine Clearance 0 mL/min (70-130); Calcium 9.9 mg/dL (7.8-10.44); Carbon Dioxide 19 mmol/L (22-29); Chloride 103 mmol/L (98-107); Estimated GFR 79; Glucose 110 mg/dL (70-105); Potassium 2.9 mmol/L (3.5-5.1); Protein, Total 7.5 g/dL (6.0-8.3); Sodium 135 mmol/L (136-145)
[2023-03-23] MEDS ORDERED: Potassium Chloride 20 MEQ/100 ML PREMIX BAG ONE (20:14)
[2023-03-23] MEDS ORDERED: Potassium Chloride 20 MEQ TAB ONE (20:17)
== END 2023-03-24 00:18 | disposition home or self-care (01) ==
LOC: ERS 17:52
DX: E87.6 Hypokalemia (principal)
CPT/HCPCS: 80053; 85025; 96374; 96375; J1200; J1885; J2930; J3480; S0028

== ENCOUNTER 2023-04-27 05:47 | Day surgery (SDC) | payer OTHER ==
[2023-04-25 14:25] VITALS: BMI 29.8
[2023-04-27] MEDS ORDERED: Midazolam HCl 2 mg/2 ml Vial ONE ×2 (07:38→07:39)
[2023-04-27] MEDS ORDERED: PROPOFOL 200 MG/20 ML VIAL ONE (07:58)
== END 2023-04-27 09:15 | disposition home or self-care (01) ==
LOC: SDC 05:47
PROVIDERS: ATTEND Internal Medicine
PROC: 0DJD8ZZ Inspection of Lower Intestinal Tract, Via Natural or Artificial Opening Endoscopic (ICD-10-PCS; principal; 2023-04-27)
DX: Z12.11 Encounter for screening for malignant neoplasm of colon (principal); K64.4 Residual hemorrhoidal skin tags; K62.89 Other specified diseases of anus and rectum; D64.9 Anemia, unspecified; K21.9 Gastro-esophageal reflux disease without esophagitis; I63.9 Cerebral infarction, unspecified; I11.0 Hypertensive heart disease with heart failure; I50.9 Heart failure, unspecified; I25.10 Atherosclerotic heart disease of native coronary artery without angina pectoris; K58.9 Irritable bowel syndrome, unspecified; K76.0 Fatty (change of) liver, not elsewhere classified; C81.90 Hodgkin lymphoma, unspecified, unspecified site; Z80.0 Family history of malignant neoplasm of digestive organs; Z86.010 Personal history of colon polyps; Z90.710 Acquired absence of both cervix and uterus; Z98.890 Other specified postprocedural states; Z79.82 Long term (current) use of aspirin; Z79.02 Long term (current) use of antithrombotics/antiplatelets; Z79.899 Other long term (current) drug therapy
CPT/HCPCS: J2250; J2704

== ENCOUNTER 2024-05-07 14:43 | Emergency (ER) | payer OTHER ==
[2024-05-07 15:38] LABS: #Basophils 0.06 10x3/uL (0.0-0.2); %Basophils 0.8 % (0.0-1.0); %Eosinophils 0.5 % (0.0-10.0); %Lymphocytes 27.1 % (21.0-51.0); %Monocytes 8.6 % (0.0-10.0); %Neutrophils 62.9 % (42.0-75.0); Hematocrit 42.6 % (36.0-47.0); Hemoglobin 13.8 g/dL (12.0-16.0); Mean Corpuscular HGB CONC 32.4 g/dL (32.0-36.0); Mean Corpuscular Volume 83.4 fL (78.0-98.0); Mean Platelet Volume 9.3 fL (7.4-10.4); Platelet Count 522 10x3/uL (130-400); Red Blood Cell (RBC) Count 5.11 mill/uL (4.20-5.40)
[2024-05-07 15:45] LABS: Bacteria/HPF 3+ HPF (None Seen); Bilirubin Negative (Negative); Blood, Urine Negative (Negative); CAUTI Indications for Culture Dysuria,urgency,freq; Clarity Turbid (Clear); Glucose, Urine (Dipstick) Normal (Negative); Ketone, Urine Negative (Negative); Leukocyte Negative Leu/uL (Negative); Nitrite Negative (Negative); Protein, Urine (Dipstick) Negative (Neg-Trace); RBC/HPF 0-3 HPF (0-3); Specific Gravity, Urine 1.011 (1.002-1.036); Squamous Epithelial 21-50 HPF (0-3); WBC/HPF 0-3 HPF (0-3)
[2024-05-07 15:46] LABS: Urine Culture Reflex No No
[2024-05-07 15:50] LABS: Amphetamine Detected (NotDetected); Barbiturates Screen Not Detected (NotDetected); Benzodiazepine Screen Not Detected (NotDetected); Cocaine Metabolite Screen Not Detected (NotDetected); Methadone Not Detected (NotDetected); Methamphetamine Not Detected (NotDetected); Opiate Screen Not Detected (NotDetected); Oxycodone Screen Not Detected (NotDetected); Phencyclidine (PCP) Not Detected (NotDetected); THC/Cannabinoid Screen Not Detected (NotDetected); Tricyclic Screen Not Detected (NotDetected)
[2024-05-07 16:07] LABS: ALT (SGPT) 14 U/L (8-55); AST (SGOT) 17 U/L (5-34); Acetaminophen Less than 10 mcg/mL (Less than 10); Albumin 4.7 g/dL (3.5-5.0); Alcohol Less than 10.0 mg/dL (Less than 10); Alkaline Phosphatase 49 U/L (40-110); Anion Gap 18 mmol/L (10-20); BUN (Urea Nitrogen) 9 mg/dL (7.0-18.7); Bilirubin, Total 0.4 mg/dL (0.2-1.2); Calc. Creatinine Clearance 0 mL/min (70-130); Carbon Dioxide 24 mmol/L (22-29); Chloride 103 mmol/L (98-107); Estimated GFR 88; Globulin 3.5 g/dL (2.4-3.5); Glucose 88 mg/dL (70-105); Potassium 3.6 mmol/L (3.5-5.1); Protein, Total 8.2 g/dL (6.0-8.3); Salicylate Less than 8.0 mg/dL (Less than 8.0); Sodium 141 mmol/L (136-145)
[2024-05-07 16:13] LABS: Troponin I Less than 0.010 ng/mL (< 0.028)
== END 2024-05-07 16:35 | disposition home or self-care (01) ==
LOC: ERS 14:43
DX: N39.0 Urinary tract infection, site not specified (principal); I50.40 Unspecified combined systolic (congestive) and diastolic (congestive) heart failure; I25.10 Atherosclerotic heart disease of native coronary artery without angina pectoris; Z79.82 Long term (current) use of aspirin; Z79.899 Other long term (current) drug therapy; Z79.01 Long term (current) use of anticoagulants
CPT/HCPCS: 71046; 80053; 80306; 80307; 81001; 83880; 84484; 85025; 85379; 93005

== ENCOUNTER 2024-05-12 09:03 | Observation (INO) | payer OTHER ==
[2024-05-12] MEDS ORDERED: Ondansetron PF 4 MG/2 ML Vial ONE (10:19)
[2024-05-12] MEDS ORDERED: Aspirin Chewable 81 MG TAB ONE (10:20)
[2024-05-12 11:00] LABS: Bacteria/HPF None Seen HPF (None Seen); Bilirubin Negative (Negative); Blood, Urine Negative (Negative); CAUTI Indications for Culture Alt mental st,lethar; Clarity Clear (Clear); Glucose, Urine (Dipstick) Normal (Negative); Ketone, Urine Negative (Negative); Leukocyte Negative Leu/uL (Negative); Nitrite Negative (Negative); Protein, Urine (Dipstick) Negative (Neg-Trace); RBC/HPF 0-3 HPF (0-3); Squamous Epithelial 0-3 HPF (0-3); Urobilinogen Normal mg/dL (Less than 2); WBC/HPF None Seen HPF (0-3)
[2024-05-12 11:02] LABS: Specific Gravity, Urine 1.003 (1.002-1.036)
[2024-05-12 11:03] LABS: Urine Culture Reflex No No
[2024-05-12 12:52] LABS: #Basophils 0.04 10x3/uL (0.0-0.2); %Basophils 0.6 % (0.0-1.0); %Eosinophils 0.4 % (0.0-10.0); %Monocytes 8.6 % (0.0-10.0); %Neutrophils 65.1 % (42.0-75.0); Hematocrit 39.9 % (36.0-47.0); Hemoglobin 12.6 g/dL (12.0-16.0); Mean Corpuscular HGB CONC 31.6 g/dL (32.0-36.0); Mean Corpuscular Hemoglobin 26.5 pg (27.0-31.0); Mean Platelet Volume 9.8 fL (7.4-10.4); Platelet Count 439 10x3/uL (130-400); RBC Distribution Width 14.8 % (11.5-14.5); Red Blood Cell (RBC) Count 4.75 mill/uL (4.20-5.40)
[2024-05-12 13:05] LABS: ALT (SGPT) 14 U/L (8-55); AST (SGOT) 18 U/L (5-34); Albumin 4.2 g/dL (3.5-5.0); Alkaline Phosphatase 40 U/L (40-110); Anion Gap 12 mmol/L (10-20); BUN (Urea Nitrogen) 7 mg/dL (7.0-18.7); Bilirubin, Total 0.3 mg/dL (0.2-1.2); Calc. Creatinine Clearance 0 mL/min (70-130); Calcium 9.3 mg/dL (7.8-10.44); Carbon Dioxide 25 mmol/L (22-29); Chloride 103 mmol/L (98-107); Estimated GFR 97; Globulin 3.3 g/dL (2.4-3.5); Glucose 91 mg/dL (70-105); Potassium 3.3 mmol/L (3.5-5.1); Protein, Total 7.5 g/dL (6.0-8.3); Sodium 137 mmol/L (136-145)
[2024-05-12 13:12] LABS: Troponin I Less than 0.010 ng/mL (< 0.028)
[2024-05-12] MEDS ORDERED: Senokot S 8.6-50 MG TAB PO PRN (14:05)
[2024-05-12] MEDS ORDERED: Acetaminophen 325 MG TAB PO PRN (14:05)
[2024-05-12] MEDS ORDERED: Ondansetron PF 4 MG/2 ML Vial IVP PRN (14:05)
[2024-05-12] MEDS ORDERED: Nitroglycerin 0.4 MG TAB (25 Tab Bottle) SL PRN (14:05)
[2024-05-12 14:36] LABS: Troponin I Less than 0.010 ng/mL (< 0.028)
[2024-05-12 14:45] LABS: Magnesium 2.1 mg/dL (1.6-2.6)
[2024-05-12] MEDS: Potassium Chloride 20 MEQ TAB PO SCH (14:58)
[2024-05-12 15:20] VITALS: BMI 28.1
[2024-05-12 19:10] LABS: Troponin I Less than 0.010 ng/mL (< 0.028)
[2024-05-12] MEDS: Famotidine 20 MG TAB PO SCH (19:40)
[2024-05-12] MEDS: Metoprolol Tartrate 25 MG TAB PO SCH (19:41)
[2024-05-13 04:09] LABS: Anion Gap 13 mmol/L (10-20); BUN (Urea Nitrogen) 7 mg/dL (7.0-18.7); Calc. Creatinine Clearance 109 mL/min (70-130); Calcium 8.5 mg/dL (7.8-10.44); Carbon Dioxide 21 mmol/L (22-29); Cardiac Risk 4.5 (Less than 4.5); Chloride 109 mmol/L (98-107); Cholesterol 196 mg/dl (< 200 Desired); Estimated GFR 93; Glucose 86 mg/dL (70-105); HDL Cholesterol 44 mg/dL (>60 Neg Risk); LDL Cholesterol, Calculated 129 mg/dL; Potassium 4.1 mmol/L (3.5-5.1); Sodium 139 mmol/L (136-145); Triglycerides 115 mg/dL (Less than 150)
[2024-05-13] MEDS ORDERED: Regadenoson 0.4 MG/5 ML SYRINGE ONE (10:12)
[2024-05-13] MEDS: Aspirin Chewable 81 MG TAB PO SCH (12:31)
[2024-05-13] MEDS: Enoxaparin 40 MG (0.4 mL) SYRINGE SC SCH (12:31)
[2024-05-13 12:44] VITALS: BP 115/68; TEMP 98.3
[2024-05-13] MEDS: Clopidogrel Bisulfate 75 MG TAB PO SCH (14:09)
[2024-05-13] MEDS ORDERED: Rosuvastatin 20 MG TAB PO SCH (21:00)
[2024-05-14] MEDS ORDERED: Clopidogrel Bisulfate 75 MG TAB PO SCH (09:00)
== END 2024-05-13 16:10 | disposition home or self-care (01) ==
LOC: ERS 09:03 → 2NO 14:25
PROVIDERS: ADMIT Internal Medicine; ATTEND Internal Medicine
DX: R07.9 Chest pain, unspecified (principal); R11.0 Nausea; R06.02 Shortness of breath; I25.10 Atherosclerotic heart disease of native coronary artery without angina pectoris; I73.9 Peripheral vascular disease, unspecified; E78.5 Hyperlipidemia, unspecified; E87.6 Hypokalemia; Z95.5 Presence of coronary angioplasty implant and graft; Z86.73 Personal history of transient ischemic attack (TIA), and cerebral infarction without residual deficits; Z85.71 Personal history of Hodgkin lymphoma; Z91.148 Patient's other noncompliance with medication regimen for other reason; Z98.84 Bariatric surgery status; Z88.8 Allergy status to other drugs, medicaments and biological substances; Z79.82 Long term (current) use of aspirin; Z79.02 Long term (current) use of antithrombotics/antiplatelets; Z79.899 Other long term (current) drug therapy
CPT/HCPCS: 36415; 78452; 80048; 80053; 80061; 81001; 83735; 83880; 84484; 85025; 93005; 93017; 96372; 96374; A9502; G0378; J1650; J2405; J2785

== ENCOUNTER 2024-06-02 17:13 | Emergency (ER) | payer OTHER ==
[2024-06-02] MEDS ORDERED: Acetaminophen 500 MG TAB ONE (17:49)
[2024-06-02 18:17] LABS: Bilirubin Negative (Negative); Blood, Urine Negative (Negative); CAUTI Indications for Culture Pelvic or flank pain; Clarity Clear (Clear); Glucose, Urine (Dipstick) Normal (Negative); Ketone, Urine Negative (Negative); Leukocyte Negative Leu/uL (Negative); Nitrite Negative (Negative); Protein, Urine (Dipstick) Negative (Neg-Trace); RBC/HPF 0-3 HPF (0-3); Specific Gravity, Urine 1.012 (1.002-1.036); Squamous Epithelial 0-3 HPF (0-3); Urobilinogen Normal mg/dL (Less than 2); WBC/HPF 0-3 HPF (0-3); pH, Urine 6.5 (5.0-9.0)
[2024-06-02 18:18] LABS: Bacteria/HPF Rare-Few HPF (None Seen)
[2024-06-02 18:20] LABS: Urine Culture Reflex No No
[2024-06-02 18:47] LABS: #Basophils 0.04 10x3/uL (0.0-0.2); %Basophils 0.5 % (0.0-1.0); %Eosinophils 0.4 % (0.0-10.0); %Lymphocytes 25.2 % (21.0-51.0); %Monocytes 9.6 % (0.0-10.0); Hematocrit 40.4 % (36.0-47.0); Hemoglobin 12.6 g/dL (12.0-16.0); Mean Corpuscular HGB CONC 31.2 g/dL (32.0-36.0); Mean Corpuscular Volume 83.3 fL (78.0-98.0); Mean Platelet Volume 9.6 fL (7.4-10.4); Platelet Count 448 10x3/uL (130-400); RBC Distribution Width 14.6 % (11.5-14.5); Red Blood Cell (RBC) Count 4.85 mill/uL (4.20-5.40)
[2024-06-02 18:57] LABS: BHCG - Serum Negative (NEGATIVE); Pregs Control Background? CLEAR/WHITE (CLR/WHITE); Pregs Control Bar Appear? YES (CONTROL BAR)
[2024-06-02 19:05] LABS: ALT (SGPT) 21 U/L (8-55); AST (SGOT) 28 U/L (5-34); Albumin 4.3 g/dL (3.5-5.0); Alkaline Phosphatase 43 U/L (40-110); Anion Gap 15 mmol/L (10-20); BUN (Urea Nitrogen) 12 mg/dL (7.0-18.7); Bilirubin, Total 0.4 mg/dL (0.2-1.2); Calc. Creatinine Clearance 0 mL/min (70-130); Calcium 9.1 mg/dL (7.8-10.44); Carbon Dioxide 25 mmol/L (22-29); Chloride 100 mmol/L (98-107); Estimated GFR 99; Globulin 3.5 g/dL (2.4-3.5); Glucose 83 mg/dL (70-105); Lipase 48 U/L (8-78); Potassium 4.2 mmol/L (3.5-5.1); Protein, Total 7.8 g/dL (6.0-8.3); Sodium 136 mmol/L (136-145)
[2024-06-02] MEDS ORDERED: Morphine 2 MG/ML VIAL ONE (22:52)
[2024-06-02] MEDS ORDERED: Sodium Chloride 0.9% 100 ML ONE (22:53)
[2024-06-02] MEDS ORDERED: Ondansetron PF 4 MG/2 ML Vial ONE (22:53)
[2024-06-02] MEDS ORDERED: Piperacillin/Tazobactam 4.5 GM VIAL ONE (22:53)
== END 2024-06-02 23:55 | disposition home or self-care (01) ==
LOC: ERS 17:13
DX: R10.12 Left upper quadrant pain (principal); K59.00 Constipation, unspecified; I25.2 Old myocardial infarction; I25.10 Atherosclerotic heart disease of native coronary artery without angina pectoris; I50.9 Heart failure, unspecified; I50.40 Unspecified combined systolic (congestive) and diastolic (congestive) heart failure; F90.9 Attention-deficit hyperactivity disorder, unspecified type; Z86.73 Personal history of transient ischemic attack (TIA), and cerebral infarction without residual deficits
CPT/HCPCS: 36415; 74177; 80053; 81001; 83605; 83690; 84703; 85025; 96365; 96375; J2272; J2405; J2543

== ENCOUNTER 2024-07-28 09:11 | Outpatient (CLI) | payer BC, OTHER ==
[2024-07-28] MEDS ORDERED: E-Z-HD 98% W/W 340GM BOT (x-ray ONLY) ONE (09:39)
[2024-07-28] MEDS ORDERED: Barium Sulfate 96% 176 GM BOT (xray ONLY) ONE ×3 (09:39→09:42)
== END 2024-07-28 09:12 | disposition home or self-care (01) ==
LOC: RAD 09:11
PROVIDERS: ATTEND Physician Assistant Medical
DX: R13.10 Dysphagia, unspecified (principal); K58.1 Irritable bowel syndrome with constipation; K21.9 Gastro-esophageal reflux disease without esophagitis; K44.9 Diaphragmatic hernia without obstruction or gangrene
CPT/HCPCS: 74220

== ENCOUNTER 2025-03-04 07:51 | Observation (INO) | payer BC, OTHER ==
[2025-03-04 08:30] LABS: #Basophils 0.04 10x3/uL (0.0-0.2); #Eosinophils Less than 0.03 10x3/uL (0.0-0.7); #Monocytes 0.47 10x3/uL (0.11-0.59); #Neutrophils 6.18 10x3/uL (1.40-6.50); %Basophils 0.5 % (0.0-1.0); %Eosinophils 0.1 % (0.0-10.0); %Lymphocytes 18.5 % (21.0-51.0); %Monocytes 5.7 % (0.0-10.0); %Neutrophils 75.1 % (42.0-75.0); Hematocrit 38.8 % (36.0-47.0); Hemoglobin 11.1 g/dL (12.0-16.0); Mean Corpuscular Hemoglobin 20.3 pg (27.0-31.0); Mean Corpuscular Volume 71.1 fL (78.0-98.0); Platelet Count 491 10x3/uL (130-400); Red Blood Cell (RBC) Count 5.46 mill/uL (4.20-5.40); White Blood Cell (WBC) Count 8.23 10x3/uL (4.8-10.8)
[2025-03-04 08:39] LABS: ALT (SGPT) 14 U/L (Less than 34); AST (SGOT) 24 U/L (11-34); Albumin 4.3 g/dL (3.1-4.5); Alkaline Phosphatase 81 U/L (40-110); Anion Gap 13 mmol/L (10-20); BUN (Urea Nitrogen) 4 mg/dL (7.0-18.7); Bilirubin, Total 0.4 mg/dL (0.3-1.2); Calc. Creatinine Clearance 0 mL/min (70-130); Calcium 9.6 mg/dL (7.8-10.44); Carbon Dioxide 20 mmol/L (22-29); Chloride 109 mmol/L (98-107); Globulin 3.4 g/dL (2.4-3.5); Glucose 94 mg/dL (70-105); Lipase 38 U/L (8-78); Potassium 4.1 mmol/L (3.5-5.1); Sodium 138 mmol/L (136-145)
[2025-03-04] MEDS ORDERED: Pantoprazole 40 MG VIAL ONE (09:15)
[2025-03-04] MEDS ORDERED: Ondansetron PF 4 MG/2 ML Vial ONE (09:15)
[2025-03-04 09:32] LABS: Anisocytosis SLIGHT = 6-15 cells HPF (0-5); Burr Cells SLIGHT = 2-5 cells HPF (0-1); Ovalocytes SLIGHT = 2-5 cells HPF (0-1); Platelet Adequacy Comment Platelets Normal; Polychromasia SLIGHT = 2-3 cells HPF (0-2); Schistocytes SLIGHT = 2-5 cells HPF (0-1)
[2025-03-04 09:40] LABS: Pregnancy Test - Urine (BHCG) Negative (Negative); Pregu Control Background? CLEAR/WHITE (CLR/WHITE); Pregu Control Bar Appear? YES (CONTROL BAR)
[2025-03-04 09:44] LABS: Bacteria/HPF None Seen HPF (None Seen); CAUTI Indications for Culture Pelvic or flank pain; Glucose, Urine (Dipstick) Normal (Negative); Leukocyte Negative Leu/uL (Negative); Protein, Urine (Dipstick) Negative (Neg-Trace); RBC/HPF 0-3 HPF (0-3); Specific Gravity, Urine 1.018 (1.002-1.036); WBC/HPF 0-3 HPF (0-3)
[2025-03-04 09:46] LABS: Urine Culture Reflex No No
[2025-03-04] MEDS ORDERED: Iopamidol-370 76% 500 ML MDV (1 ML CHARGE) ONE (10:20)
[2025-03-04 15:22] VITALS: BMI 26.6
[2025-03-04] MEDS ORDERED: Melatonin 3 MG TAB PO PRN (15:26)
[2025-03-04] MEDS ORDERED: Acetaminophen 325 MG TAB PO PRN (15:26)
[2025-03-04] MEDS ORDERED: Electrolyte Replacement Protocol 1 EACH FS SCH (15:30)
[2025-03-04 18:44] LABS: Hematocrit 35.3 % (36.0-47.0); Hemoglobin 10.1 g/dL (12.0-16.0)
[2025-03-04 19:03] LABS: Magnesium 2.2 mg/dL (1.6-2.6)
[2025-03-04] MEDS: Metoprolol Succinate XL 25 MG ER.TAB PO SCH (19:51)
[2025-03-04] MEDS: Pantoprazole 40 MG VIAL IVP SCH (19:51)
[2025-03-05] MEDS ORDERED: PROPOFOL 20 ML ONE (07:06)
[2025-03-05] MEDS ORDERED: GLYCOPYRROLATE/PF 0.2 MG/ML VIAL ONE (07:06)
[2025-03-05 07:20] LABS: #Basophils 0.04 10x3/uL (0.0-0.2); #Eosinophils 0.09 10x3/uL (0.0-0.7); #Monocytes 0.55 10x3/uL (0.11-0.59); #Neutrophils 3.33 10x3/uL (1.40-6.50); %Basophils 0.6 % (0.0-1.0); %Eosinophils 1.3 % (0.0-10.0); %Lymphocytes 41.1 % (21.0-51.0); %Monocytes 8.1 % (0.0-10.0); %Neutrophils 48.8 % (42.0-75.0); Hematocrit 36.0 % (36.0-47.0); Hemoglobin 10.5 g/dL (12.0-16.0); Mean Corpuscular Hemoglobin 20.5 pg (27.0-31.0); Mean Corpuscular Volume 70.5 fL (78.0-98.0); Platelet Count 413 10x3/uL (130-400); Red Blood Cell (RBC) Count 5.11 mill/uL (4.20-5.40); White Blood Cell (WBC) Count 6.83 10x3/uL (4.8-10.8)
[2025-03-05 07:30] LABS: ALT (SGPT) 11 U/L (Less than 34); AST (SGOT) 19 U/L (11-34); Albumin 4.0 g/dL (3.1-4.5); Alkaline Phosphatase 73 U/L (40-110); Anion Gap 12 mmol/L (10-20); BUN (Urea Nitrogen) 4 mg/dL (7.0-18.7); Bilirubin, Total 0.3 mg/dL (0.3-1.2); Calc. Creatinine Clearance 112 mL/min (70-130); Calcium 9.1 mg/dL (7.8-10.44); Carbon Dioxide 22 mmol/L (22-29); Chloride 110 mmol/L (98-107); Globulin 2.8 g/dL (2.4-3.5); Glucose 70 mg/dL (70-105); Potassium 3.8 mmol/L (3.5-5.1); Sodium 140 mmol/L (136-145)
[2025-03-05] MEDS ORDERED: PHENYLEPHRINE-NS 100 MCG/ML 10 ML SYRINGE ONE (07:30)
[2025-03-05 09:03] VITALS: BP 109/72; TEMP 97.9
[2025-03-05 09:05] LABS: Anisocytosis MODERATE=16-30 cells HPF (0-5); Macrocytosis SLIGHT = 6-15 cells HPF (0-5); Ovalocytes SLIGHT = 2-5 cells HPF (0-1); Platelet Adequacy Comment Platelets Increased; Polychromasia SLIGHT = 2-3 cells HPF (0-2); Schistocytes SLIGHT = 2-5 cells HPF (0-1)
[2025-03-05] MEDS: Ondansetron PF 4 MG/2 ML Vial IVP PRN (10:42)
== END 2025-03-05 15:41 | disposition home or self-care (01) ==
LOC: ERS 07:51 → T4-A 14:10
PROVIDERS: ADMIT Internal Medicine; ATTEND Family Medicine
PROC: 0DB68ZX Excision of Stomach, Via Natural or Artificial Opening Endoscopic, Diagnostic (ICD-10-PCS; principal; 2025-03-04)
DX: K25.9 Gastric ulcer, unspecified as acute or chronic, without hemorrhage or perforation (principal); K92.1 Melena; D64.9 Anemia, unspecified; I11.0 Hypertensive heart disease with heart failure; I50.9 Heart failure, unspecified; I25.10 Atherosclerotic heart disease of native coronary artery without angina pectoris; E78.5 Hyperlipidemia, unspecified; F41.9 Anxiety disorder, unspecified; Z87.59 Personal history of other complications of pregnancy, childbirth and the puerperium; Z98.84 Bariatric surgery status; Z90.710 Acquired absence of both cervix and uterus; Z91.048 Other nonmedicinal substance allergy status; Z79.51 Long term (current) use of inhaled steroids; Z79.02 Long term (current) use of antithrombotics/antiplatelets; Z79.899 Other long term (current) drug therapy
CPT/HCPCS: 36415; 74177; 80053; 81001; 81025; 82274; 83690; 83735; 84100; 84484; 85025; 86850; 86900; 86901; 88305; 88342; 93005; 96374; 96375; 96376; G0378; J2470; J2704; J3490; J7120; Q9967